=== PATIENT | male | born 1980 | race Caucasian/White ===

== ENCOUNTER 2025-06-14 11:16 | Day surgery (SDC) | payer OTHER, SELFPAY ==
[2025-06-14] VITALS (8 sets, daily range): BP systolic 115–165; BP diastolic 84–101
--- NOTE | 2025-06-14 07:45 | ED.GENMED ---
History of Present Illness
General
Chief Complaint: Abdominal Pain
Source: patient
Exam Limitations: none
Time Seen by Provider: 06/14/25 07:38
History of Present Illness
History of Present Illness:
45-year-old male relatively sudden onset of left flank and back pain 36 hours ago. Now pain is more in the left lower quadrant. Some nausea. No fever or chills. No change in bowels. No urinary symptoms. No history of same. Took an Aleve a day
ago.
Past History
Past History
ED Past Medical History: HTN
Review of Systems
Review of Systems
All Other Systems: Not applicable
Constitutional: Denies fever or chills
Phy Exam
Physical Exam
Physical Exam:
GENERAL: Alert and oriented in no apparent distress
EYE: Orbits normal.
NECK: Supple
CARDIAC: Regular rate and rhythm without any obvious murmurs.
LUNGS: Clear breath sounds,normal
ABDOMEN: Soft, without focal tenderness or distention. Specifically no obvious left lower quadrant tenderness rebound or guarding. No CVA tenderness
NEUROLOGICAL: Alert and oriented , grossly non-focal
SKIN: Warm and dry
PSYCH: Normal and appropriate interaction.
Course
Orders/Labs/Results
Orders:
Orders
06/14/25
Basic Metabolic Panel Urgent
06/14/25 07:38
IV Insert/Care/Rem.- Treatment PRN
Complete Blood Count/With Diff Urgent
Urinalysis Reflex To Culture Urgent
Date Specimen was Collected: 06/14/25
Time Specimen was Collected: 07:41
Urine Microscopic Reflex Cult Urgent
Urine Culture Urgent
TAMIR Source: U
Specimen Description:
Date Specimen was Collected: 06/14/25
Time Specimen was Collected: 07:41
06/14/25 07:39
CT Abd/pel Without Iv Or Oral Urgent
Comment:
Reason For Exam: Left flank/left lower quadrant pain
06/14/25 07:45
0.9% Sodium Chloride 1000 ml [Nss] 1,000 ml IV BOLUS
Ketorolac [Toradol] 15 mg IV NOW STA
Ondansetron Injectable [Zofran] 4 mg IV NOW STA
06/14/25 09:30
0.9% Sodium Chloride 1000 ml [Nss] 1,000 ml IV BOLUS
06/14/25 10:27
HYDROmorphone [Dilaudid] 0.5 mg IV NOW STA
06/14/25 10:39
CefTRIAXone [Rocephin] 1,000 mg IV NOW STA
06/14/25 10:50
Sterile Water [Sterile Water For Injection] 10 ml IV NOW STA
06/14/25 10:51
Lidocaine HCl/Pf [Xylocaine-Mpf 1% Vial] 50 mg .ROUTE .STK-MED ONE
Propofol [Diprivan] 20 ml .ROUTE .STK-MED
06/14/25 10:59
Midazolam HCl [Versed] 2 mg .ROUTE .STK-MED ONE
06/14/25 11:00
Dexamethasone Sod Phosphate [Decadron] 20 mg .ROUTE .STK-MED ONE
Fentanyl Citrate/Pf [Sublimaze] 100 mcg .ROUTE .STK-MED ONE
Ondansetron Injectable [Zofran] 4 mg .ROUTE .STK-MED ONE
06/14/25 11:43
Fentanyl Citrate/Pf [Sublimaze] 25 mcg IV [id number] PRN
HYDROmorphone [Dilaudid] 0.25 mg IV [id number] PRN
HYDROmorphone [Dilaudid] 0.5 mg IV [id number]-Q5MPRN PRN
Ondansetron Injectable [Zofran] 4 mg IV PACU-ONCEPRN PRN
Prochlorperazine [Compazine] 5 mg IV PACU-ONCEPRN PRN
Notify MD As Directed
Notify physician if: for SDS patients with known or suspected sleep obstructive sleep apnea, monitor in the
PACU.
Notify MD for any apneic/desaturation episodes
O2 Therapy [RESP] Urgent
Titrate/Wean O2 to maintain O2 sat greater than (%): 92
Special Instructions: -Provide supplemental oxygen to achieve O2 sat of 92% or greater.
-After 15 min, may wean O2 and discontinue if patient is able to maintain O2 sat of 92%
or greater during recovery period.
If patient is a discharge home, without oxygen therapy, notify anestheiologist if
unable to maintain O2 SAT of 92% or greater on room air for MD clearance.
06/14/25 11:45
Normosol (Mult Electrolytes) [Normosol-R/Plasmalyte-A] 1,000 ml IV PER PROTOCOL
06/14/25 12:10
CR Abdomen - 1 View Routine
Reason For Exam: LEFT LASER, BASKET, STENT PLACEMENT
RF Fluoroscopy, C-arm Routine
06/14/25 12:18
Fentanyl Citrate/Pf [Sublimaze] 100 mcg .ROUTE .K-MED ONE
06/14/25 12:38
Stone Analysis With Image [S] Routine
Comment: Left Ureteral Stone
Abnormal Lab Results
06/14/25 06/14/25
07:38 Unknown
WBC 15.9 H 10^3/uL
(4.8-10.8)
RBC 6.36 H 10^6/uL
(4.70-6.10)
MCV 72.3 L fL
(80.0-94.0)
MCH 22.6 L pg
(27.0-31.0)
MCHC 31.3 L g/dL
(33.0-37.0)
RDW 16.4 H %
(11.5-14.5)
Abs Immat Gran (auto) 0.1 H 10^3/uL
(0-0.05)
Absolute Neuts (auto) 12.9 H 10^3/uL
(1.4-6.5)
Absolute Monos (auto) 1.5 H 10^3/uL
(0.1-0.6)
Neutrophils % 81.3 H %
(42.2-75.2)
Lymphocytes % 8.1 L %
(20.5-51.1)
Monocytes % 9.6 H %
(1.7-9.3)
Creatinine 2.0 H mg/dL
(0.7-1.3)
Glucose 101 H mg/dl
(70-99)
Calcium 10.3 H mg/dl
(8.4-10.2)
Ur Occult Blood Reflex 1+ A
(Negative)
Leukocyte Esterase Rfl 1+ A
(Negative)
Urine RBC 7-10 A /HPF
(0-2)
Urine Albumin (Reflex) 2+ A
(Neg - Trace)
06/14/25 07:38
06/14/25 Unknown
Vital Signs
Initial and Last Documented VS:
Initial Vital Signs
Temp Pulse Resp BP Pulse Ox
98.7 F 105 16 165/98 98
06/14/25 06:57 06/14/25 06:57 06/14/25 06:57 06/14/25 06:57 06/14/25 06:57
Last Documented Vital Signs
Temp Pulse Resp BP Pulse Ox
97.7 F 85 16 153/91 94
06/14/25 13:45 06/14/25 13:45 06/14/25 13:45 06/14/25 13:45 06/14/25 13:30
MDM/Problems Addressed
Differential Diagnosis Includes:
History most consistent with kidney stone. Doubt infectious component. No fever no chills. Check labs urine and CT scan. Pain management fluids. Diverticulitis would also be in the differential although unlikely
*Pulse Oximetry
SaO2: 98
Oxygen Mode of Delivery: Room air
Patient hypoxic: no
*Critical Care Note
Total Time (30-74mins, 75-104mins- exclusive of procedures): Not Applicable
Update Note
Update Note:
7 mm obstructing stone left proximal ureter with hydronephrosis. Leukocytosis likely reactive. He has no fever. His urinalysis is negative. However creatinine is 2.0. Baseline unknown but likely this is off. Will give second liter of fluids
and refer to urology.
ED Attending Note
-
Portions of this chart may have been created with voice recognition software.� Occasional wrong word or��sound alike� substitutions may have occurred due to the inherent limitations of voice recognition software.
Discharge Plan
Departure
Patient Disposition: Admit
Date of Disposition: 06/14/25
Time of Disposition: 10:29
Presentation/result/management discussed w/ accepting MD/DO: urology
Discharge Problem:
Obstructing proximal kidney stone left, Renal insufficiency
Interventions
Interventions:
*Risk Screen - Suicide Last Done: 06/14/25 06:57
*General Assessment Last Done: 06/14/25 07:56
*Neglect/Abuse Screening Last Done: 06/14/25 06:57
*ED- Fall Risk Assessment Last Done: 06/14/25 07:56
*ED COVID-19 Vaccine History Last Done: 06/14/25 07:56
*ED Influenza Vaccine History Last Done: 06/14/25 07:56
*Nursing Disposition Last Done: 06/14/25 11:36
PU-Ogibcg-Gbchcmjnwr Assessment Last Done: 06/14/25 07:56
Discharge Date and Time
Discharge Date/Time: 06/14/25 11:36
[2025-06-14] MEDS: NSS 1000 IV ×2 (07:53→09:34)
[2025-06-14] MEDS: TORADOL 15 MG IV (07:53)
[2025-06-14] MEDS: ZOFRAN 4 MG IV (07:54)
[2025-06-14 08:31] LABS: Blood Urea Nitrogen 19 mg/dl (9-20); Calcium 10.3 mg/dl (8.4-10.2); Carbon Dioxide 27 mmol/L (22-30); Chloride 99 mmol/L (98-107); Glucose 101 mg/dl (70-99); Potassium 3.8 mmol/L (3.5-5.1); Sodium 135 mmol/L (135-145); eGFR 40.66
[2025-06-14 08:38] LABS: Hematocrit 46.0 % (39.0-52.0); Hemoglobin 14.4 g/dL (13.0-18.0); Mean Corp Hgb Conc. 31.3 g/dL (33.0-37.0); Mean Corpuscular Volume 72.3 fL (80.0-94.0); Nucleated Red Blood Cells % 0 % (-); Platelet Count 383 10^3/uL (130-400); Red Cell Dist. Width 16.4 % (11.5-14.5)
[2025-06-14 08:45] LABS: Urine Character Clear (Clear)
[2025-06-14 09:02] LABS: Urine Squamous Cell None seen /LPF (Few)
[2025-06-14 09:04] LABS: Urine White Cell 0-2 /HPF (0-5)
[2025-06-14] MEDS: DILAUDID 0.5 MG IV (10:30)
--- NOTE | 2025-06-14 10:36 | HP.FOC2 ---
Focused History & Physical
Chief Complaint
HPI:
Chief Complaint: Flank pain
HPI / Indication for Planned Procedure:
45M without prior urologic hx, no significant PMH
Presents with sudden onset of left flank and back pain 36 hours ago. Now pain is more in the left lower quadrant. Some nausea. No fever or chills. No change in bowels. No urinary symptoms. Took an Aleve a day ago.
CT showed a 7mm L prox ureteral stone
Labs showed significant GUILLERMINA with creatinine 2
He says creat slightly elevated 1.1 with his PCP on yearly labs last year
Relevant Past Medical History: Negative
Relevant Social History: Negative
Relevant Family History: Negative
Relevant Past Surgical History: Negative
Review of Systems
Review of Pertinent Systems: All Systems Negative
Medication
See Medication form for detailed medications: No
Medications Reviewed: Yes
Allergies and Reactions
Patient has Allergies: No
Noted Allergies and Reactions:
Allergy/AdvReac Type Severity Reaction Status Date / Time
No Known Allergies Allergy Verified 06/14/25 06:56
Pertinent Physical Exam
All Other Systems: Negative
Head/Neck: Normal
Lungs: Normal
Heart: Normal
Extremities: Normal
Diagnosis / Assessment
45M with L prox ureteral stone and GUILLERMINA
No evidence of systemic infection or acute UTI
- OR this AM for ureteroscopy, laser lithotripsy, stent placement
- Likely discharge post procedure
- Repeat BMP prior to follow up
Plan / Procedure
- OR this AM for ureteroscopy, laser lithotripsy, stent placement
- Likely discharge post procedure
- Repeat BMP prior to follow up
Anesthesia/Sedation to be done by Anesthesia Provider: Yes
[2025-06-14] MEDS: ROCEPHIN 1000 MG IV (10:53)
[2025-06-14] MEDS: STERILE WATER FOR INJECTION 10 ML IV (10:53)
--- NOTE | 2025-06-14 13:02 | SUR.PHASEI ---
Rec'd sleepy on stretcher with HOB elevated low fowlers, oral airway removed sagrario well, oriented x3 reassured
--- NOTE | 2025-06-14 13:20 | SUR.PHASEI ---
Arouses easily. Dr Duque in
--- NOTE | 2025-06-14 13:25 | W.IMMPOSTOP ---
Surgical Immed Post Op Note
-
Primary Surgeon: Peffer
Assisting Surgeon: -
Pre-op Diagnosis:L ureteral stone
Post-op Diagnosis: same
Procedure Performed: L ureteroscopy, laser lithotripsy, stent placement
Anesthesia Type: general
Specimen / Cultures: stone
Estimated Blood Loss: 1cc
Complications: -
Operative Findings: -
--- NOTE | 2025-06-14 13:33 | SUR.PHASEI ---
More alert, sagrario ice chips well
--- NOTE | 2025-06-14 14:07 | SUR.PHASEII ---
Alert, awake, in , walked to BR gait steady sagrario well, denies c/o voided without difficult, sagrario po fluids well, d/c instructions reviewed with pt and , asked appropriate questions, lungs auscultated ant /post clear,
== END 2025-06-14 14:00 | disposition home or self-care (01) ==
LOC: PACU 11:16
PROVIDERS: Urology; ATTENDING PHYSICIAN Emergency Medicine
DX: N13.2 Hydronephrosis with renal and ureteral calculous obstruction (principal)
CPT/HCPCS: 52356; 74018; 74176; 76000; 80048; 81003; 81015; 82365; 85025; 87086; 96361; 96374; 96375; 99285

== ENCOUNTER → 2025-07-07 12:02 | Outpatient (REF) | payer OTHER, SELFPAY ==
[2025-07-07 13:28] LABS: Blood Urea Nitrogen 14 mg/dl (9-20); Calcium 10.0 mg/dl (8.4-10.2); Carbon Dioxide 32 mmol/L (22-30); Chloride 99 mmol/L (98-107); Glucose 75 mg/dl (70-99); Potassium 4.1 mmol/L (3.5-5.1); Sodium 136 mmol/L (135-145); eGFR > 60.00
== END ==
LOC: REG 12:02
PROVIDERS: ATTENDING PHYSICIAN Urology
DX: N20.0 Calculus of kidney (principal)
CPT/HCPCS: 36415; 80048; 83970